=== PATIENT | male | born 2000 | race Caucasian/White ===

== ENCOUNTER 2022-10-14 16:17 | Emergency (ER) | payer BC ==
[2022-10-14] MEDS: Ketorolac 60 MG/2 ML SDV IM ONE (16:53)
== END 2022-10-14 17:23 | disposition home or self-care (01) ==
LOC: CC.ED 16:17
DX: S39.011A Strain of muscle, fascia and tendon of abdomen, initial encounter (principal); Z72.0 Tobacco use; W18.30XA Fall on same level, unspecified, initial encounter
CPT/HCPCS: 96372; 99283; J1885